=== PATIENT | female | born 1940 | race Caucasian/White ===

== ENCOUNTER 2021-10-14 12:44 | Outpatient (CLI) | payer MEDICARE, SELFPAY ==
--- NOTE | ~2021-10-14 | CT_ITS ---
EXAMINATION:CT chest high resolution wo nv DATE: 10/14/2021 14:07 INDICATION: Interstitial lung disease. TECHNIQUE: Computed tomography (CT) of the chest was performed without intravenous contrast. Automate d exposure control and iterative reconstruction technique were employed. The dose-length product (DLP ) was 307.38 mGy-cm. COMPARISON: Chest single view 11/20/2016 FINDINGS: There is chronic mild elevation of right hemidiaphragm. There is widespread peripheral sept al thickening with calcifications with an inferior lung predominance. There is mild bronchiectasis in the inferior lungs. No honeycombing. No pleural effusion. The heart size is normal. There are perez ry artery calcifications. No pericardial effusion. There are bridging endplate osteophytes at multipl e levels in the spine, consistent with diffuse idiopathic skeletal hyperostosis (DISH). There is alcon re cervical spondylosis. IMPRESSION: 1. Chronic interstitial lung disease in a pattern of usual interstitial pneumonia (UIP). Reviewed, dictated and finalized at location A. IMPRESSION: 1. Chronic interstitial lung disease in a pattern of usual interstitial pneumon ia (UIP).
--- NOTE | 2021-10-17 13:33 | WPDPFTINT ---
PFT Procedure Performed PFT Procedure Performed Spirometry with Pre/Post Bronchodilator Plethysmography (Lung Vol) Diffusing Cap (DLCO) Flow Vol Loop PFT Interpretation Lung volumes were measured with the body plethysmography method. Lung volumes are unremarkable. Spirometry showed normal expiratory flow rates and a normal FEV1 to FVC ratio of 79%. Following administration of a bronchodilator there was no significant change in the expiratory flow rates. Lung diffusion capacity is moderately reduced at 50% predicted. The flow volume loop is unremarkable. Impression: Spirometry and lung volumes within normal range. Moderately reduced lung diffusion capacity.
== END 2021-10-14 12:45 | disposition home or self-care (01) ==
PROVIDERS: PCP Family Medicine; Visit Provider Internal Medicine Pulmonary Disease
DX: J84.9 Interstitial pulmonary disease, unspecified (principal)
CPT/HCPCS: 71250; 94060; 94726; 94729